=== PATIENT | male | born 1995 | race Caucasian/White ===

== ENCOUNTER 2017-02-02 20:21 | Emergency (ER) | payer MEDICAID ==
[2017-02-02 20:29] VITALS: BMI 36.9
[2017-02-02] MEDS ORDERED: TORADOL 60 MG VIAL IM ONE (20:55)
[2017-02-02] MEDS ORDERED: TORADOL 60 MG VIAL ONE (21:00)
--- NOTE | 2017-02-02 21:50 | RAD ---
Right ankle three views Indication: Right ankle pain after tripping. Findings: Tibiotalar joint is intact. There is no cortical lucency or gross malalignment. No marked s oft tissue swelling seen. Impression: No acute right ankle fracture identified. Reported By:
--- NOTE | 2017-02-02 22:05 | DR.GENAD ---
HPI - PCP Primary Care Physician: AMY - HPI Comment HPI Comment: SWELLING LATERAL ASPECT RT ANKLE. DIFFICULTY BEARING WEIGHT. - Complaint/Symptoms Chief Complaint Doctors Comments: FELL AT HOME TONIGHT COMING OUT OF SHOWER AND INJURED RIGHT ANKLE. Chief Complaint:: FELL CLEANING SHOWER FLOOR Self Treatment fo Chief Complaint: PT TOOK ADVIL FOR PAIN - Nurses notes reviewed Nurses Notes Review: Yes - Source History Provided: Patient - Mode of Arrival Mode of Arrival: Ambulatory - Timing Onset of Chief Complaint: 02/02/17 Came on: Suddenly - Duration Duration: Constant Duration: Hours - Severity Severity: Moderate PMH - PMH Past Medical History: Yes Past Medical History: Seizures Past Surgical History: Yes Surgical History: Ortho Surgery Past Surgical History Comment: BACK SURGERY - Family History History of Family Medical Conditions: No - Social History Does patient currently use any type of tobacco product: No Have you used tobacco products in the last 12 months: No Type of Tobacco Use: Cigarettes Does any household member use tobacco: No Alcohol Use: None Do you use any recreational Drugs:: No Lives With: Spouse Lives Where: Home - infectious screening In the last 2 months have you had wt loss of >10#?: NO Have you had fever, night sweats or hemotysis?: No Have you traveled outside the country in the last 6 months?: No Isolation: Standard ROS - Review of Systems Constitutional: No Symptoms Reported Eyes: No Symptoms Reported ENTM: No Symptoms Reported Respiratoy: No Symptoms Reported Cardiovascular: No Symptoms Reported Gastrointestinal/Abdominal: No Symptoms Reported Genitourinary: No Symptoms Reported Neurological: No Symptoms Reported Musculoskeletal: Right, Ankle Integumentary: No Symptoms Reported Hematologic/Lymphatic: No Symptoms Reported Endocrine: No Symptoms Reported All Other Systems: Reviewed and Negative PE - Vital Signs Vitals: Temperature 98.2 F Pulse Rate [Right] 68 Pulse Rate 95 Respiratory Rate 16 Blood Pressure [Right Arm] 121/60 Blood Pressure 146/72 O2 Sat by Pulse Oximetry 99 - General Limitations: No Limitations General Appearance: Alert - Head Head Exam: Normal Inspection - Eyes Eye exam: Normal Appearance - ENT ENT Exam: Normal External Ear Exam External Ear Exam: Normal External Inspection TM/Canal Exam: Bilateral Normal Throat Exam: Normal Inspection - Neck Neck Exam: Normal Inspection - Chest Chest Inspection: Symmetric Chest Wall Rise - Respiratory Respiratory Exam: Normal Lung Sounds Bilat Respiratory Exam: Bilateral Clear to Auscultation - Cardiovascular Cardiovascular Exam: Regular Rate, Normal Rhythm, Normal Heart Sounds - Abdominal Exam Abdominal Exam: Normal Inspection - Extremities Extremities Exam: Tenderness (RIGHT ANKLE, SWELLING AND TENDERNESS LATERAL MALLEOLUS. ROM DECREASE. PULSES INTACT.) - Back Back Exam: Normal Inspection - Neurologic Neurological Exam: Alert, Oriented X3 - Psychiatric Psychiatric Exam: Normal Affect, Normal Mood - Skin Skin Exam: Erythema MDM - Additional Information Additional Information Obtained From: Family - Differential Diagnosis Differential Diagnosis: RIGHT ANKLE FRACTURE, SPRAIN, CONTUSION, STRAIN Course - Treatment Treatment: SEE ORDERS. IM TORADOL IN ED FOR PAIN. - Reevaluation 1st: Improved - Education/Counseling Education/Counseling: Patient, Family, Education Educated On: Treatment, Diagnosis, Needs for Follow Up ROR - XRAY XRAY Interpreted by: Radiologist XRAY Findings: REPORT DISCUSS WITH PATIENT. - Diagnosis Discharge Problem: Right ankle sprain Qualifiers: Encounter type: initial encounter Involved ligament of ankle: unspecified ligament Qualified Code(s): S93.401A - Sprain of unspecified ligament of right ankle, initial encounter - Discharge Plan Condition: Stable Prescriptions: Acetaminophen with Codeine [Tylenol/Codeine #3 300-30 mg] 1 tab PO Q6H PRN #15 tab PRN Reason: Pain Ibuprofen [MOTRIN TAB 800 MG *] 800 mg PO Q8H PRN #20 tab PRN Reason: Pain/Inflammation - Follow ups/Referrals Follow ups/Referrals: ROSA REYES [Primary Care Provider] - 1 day - Instructions Instructions: Acute Ankle Sprain With Phase I Rehab-SportsMed Additional Instructions: RETURN TO ED IF WORSE.
[2017-02-02 22:26] VITALS: BP 121/60
== END 2017-02-02 22:20 | disposition home or self-care (01) ==
LOC: ER 20:35
DX: S93.401A Sprain of unspecified ligament of right ankle, initial encounter (principal); W19.XXXA Unspecified fall, initial encounter; Y92.009 Unspecified place in unspecified non-institutional (private) residence as the place of occurrence of the external cause
CPT/HCPCS: 73610; 96372; 99282; 99284; J1885